=== PATIENT | female | born 1990 | race Native Hawaiian/Other Pacific Islander ===

== ENCOUNTER 2018-11-18 10:54 | Outpatient (CLI) | payer OTHER | END 2018-11-18 20:25 | disposition home or self-care (01) | LOC: US 10:54 | DX: E05.00 Thyrotoxicosis with diffuse goiter without thyrotoxic crisis or storm (principal); E04.1 Nontoxic single thyroid nodule ==

== ENCOUNTER 2018-12-04 18:42 | Emergency (ER) | payer OTHER ==
[~2018-12-04] VITALS: Ht 167.6 cm; Wt 59.9 kg
[2018-12-04 19:57] LABS: PLATELET COUNT 194 K/uL (152-353)
[2018-12-04 20:06] LABS: POTASSIUM 3.5 mmol/L (3.6-5.2); SODIUM 139 mmol/L (136-145)
[2018-12-04 20:46] VITALS: BP 120/75; TEMP 98.2
== END 2018-12-04 20:46 | disposition home or self-care (01) ==
LOC: ED 18:42
PROVIDERS: Emergency Medicine
DX: E86.0 Dehydration (principal); R61 Generalized hyperhidrosis; Z33.1 Pregnant state, incidental; R00.0 Tachycardia, unspecified
CPT/HCPCS: 80053; 81000; 82553; 84484; 85027; 87502; 93005; 96360; 99284

== ENCOUNTER 2018-12-10 10:10 | Outpatient (CLI) | payer OTHER | END 2018-12-10 22:24 | disposition home or self-care (01) | LOC: LABW 10:10 | DX: E05.00 Thyrotoxicosis with diffuse goiter without thyrotoxic crisis or storm (principal); E04.1 Nontoxic single thyroid nodule; R00.2 Palpitations | CPT/HCPCS: 36415; 84439; 84443 ==

== ENCOUNTER 2018-12-30 21:29 | Emergency (ER) | payer OTHER ==
[~2018-12-30] VITALS: Ht 167.6 cm; Wt 60.3 kg
[2018-12-30] MEDS ORDERED: PROP40TA53 PO (21:50)
[2018-12-30 23:02] LABS: PLATELET COUNT 199 K/uL (152-353)
[2018-12-30 23:07] LABS: POTASSIUM 3.6 mmol/L (3.6-5.2)
[2018-12-31 00:15] VITALS: BP 115/72; TEMP 98.3
== END 2018-12-31 00:20 | disposition home or self-care (01) ==
LOC: ED 21:29
PROVIDERS: Emergency Medicine
DX: E86.0 Dehydration (principal); E83.42 Hypomagnesemia; Z33.1 Pregnant state, incidental
CPT/HCPCS: 36415; 80053; 81000; 83735; 84439; 84443; 84481; 84484; 85027; 87502; 87651; 93005; 96360; 99284

== ENCOUNTER 2019-02-15 10:33 | Outpatient (CLI) | payer OTHER ==
[~2019-02-15 10:33] MED LIST: PROP40TA53 PO
== END 2019-02-15 17:00 | disposition home or self-care (01) ==
LOC: US 10:33
DX: N64.4 Mastodynia (principal)

== ENCOUNTER 2019-02-16 23:14 | Emergency (ER) | payer OTHER ==
[~2019-02-16] VITALS: Ht 170.2 cm; Wt 64.9 kg
[2019-02-17 00:03] VITALS: BP 134/77; TEMP 97.9
== END 2019-02-17 00:04 | disposition short-term general hospital (02) ==
LOC: ED 23:14
DX: R10.84 Generalized abdominal pain (principal); Z3A.32 32 weeks gestation of pregnancy
CPT/HCPCS: 99284

== ENCOUNTER 2019-08-22 09:55 | Outpatient (CLI) | payer OTHER | END 2019-08-22 19:18 | disposition home or self-care (01) | LOC: US 09:55 → LAB 09:55 → US 10:00 | DX: E05.00 Thyrotoxicosis with diffuse goiter without thyrotoxic crisis or storm (principal); R13.10 Dysphagia, unspecified; E05.90 Thyrotoxicosis, unspecified without thyrotoxic crisis or storm | CPT/HCPCS: 36415; 84439; 84443 ==

== ENCOUNTER 2020-03-09 09:36 | Outpatient (CLI) | payer OTHER ==
[2020-03-09 10:09] LABS: PLATELET COUNT 248 K/uL (152-353)
== END 2020-03-09 22:59 | disposition home or self-care (01) ==
LOC: LABW 09:36
PROVIDERS: ATTEND Nurse Practitioner Family
DX: R10.11 Right upper quadrant pain (principal)
CPT/HCPCS: 36415; 80053; 82150; 83690; 85027; 86318

== ENCOUNTER 2021-01-01 10:52 | Outpatient (CLI) | payer OTHER ==
[2021-01-01 11:31] LABS: PLATELET COUNT 268 K/uL (152-353)
[2021-01-01 11:53] LABS: PARTIAL THROMBOPLASTIN TIME 25.7 SECONDS (24.5-33.6)
[2021-01-01 12:09] LABS: POTASSIUM 4.3 mmol/L (3.6-5.2)
== END 2021-01-01 18:58 | disposition home or self-care (01) ==
LOC: LABW 10:52
PROVIDERS: ATTEND Nurse Practitioner Family
DX: Z01.84 Encounter for antibody response examination (principal); E05.90 Thyrotoxicosis, unspecified without thyrotoxic crisis or storm; Z13.1 Encounter for screening for diabetes mellitus; R53.83 Other fatigue; Z13.220 Encounter for screening for lipoid disorders; E55.9 Vitamin D deficiency, unspecified; Z83.2 Family history of diseases of the blood and blood-forming organs and certain disorders involving the immune mechanism
CPT/HCPCS: 36415; 80053; 80061; 81241; 82306; 82607; 83036; 84439; 84443; 84481; 85027; 85220; 85300; 85306; 85307; 85610; 85730; 86376; 86769

== ENCOUNTER 2021-04-04 12:25 | Outpatient (CLI) | payer OTHER ==
[2021-04-04 13:02] LABS: PLATELET COUNT 230 K/uL (152-353)
[2021-04-04 13:31] LABS: POTASSIUM 3.9 mmol/L (3.6-5.2)
== END 2021-04-04 19:55 | disposition home or self-care (01) ==
LOC: LABW 12:25
PROVIDERS: ATTEND Nurse Practitioner Family
DX: R10.11 Right upper quadrant pain (principal)
CPT/HCPCS: 36415; 80053; 82150; 83690; 85027; 86677

== ENCOUNTER 2021-04-08 11:59 | Outpatient (CLI) | payer OTHER | END 2021-04-08 18:54 | disposition home or self-care (01) | LOC: NM 11:59 | PROVIDERS: ATTEND Nurse Practitioner Family | DX: R10.11 Right upper quadrant pain (principal) | CPT/HCPCS: A9537 ==

== ENCOUNTER 2022-02-11 09:31 | Outpatient (CLI) | payer OTHER ==
[2022-02-11 09:52] LABS: PLATELET COUNT 280 K/uL (152-353)
[2022-02-11 10:00] LABS: POTASSIUM 3.4 mmol/L (3.6-5.2); SODIUM 138 mmol/L (136-145)
== END 2022-02-11 18:58 | disposition home or self-care (01) ==
LOC: LABW 09:31
PROVIDERS: ATTEND Nurse Practitioner Family
DX: R00.2 Palpitations (principal)
CPT/HCPCS: 36415; 80053; 82553; 83735; 84436; 84439; 84443; 84480; 84481; 84484; 85027; 86376; 93005; 93225